=== PATIENT | male | born 1965 | race Caucasian/White ===

== ENCOUNTER → 2017-01-18 | Outpatient (CLI) | payer BC ==
--- NOTE | 2017-01-18 16:23 | KCIC ---
CERVICAL SPINE 2-3V, HAND BILAT 2V Indication: Arthralgia. . History of right fifth finger injury. History of neck injury. Comparison: No comparison is available. FINDINGS: Two-view left hand No evidence of acute fracture. Joint spaces intact. No bone destruction. Soft tissues appear unremarkable. Small chronic appearing ossicle identified at the anterior wrist. IMPRESSION: No acute fracture or dislocation. Two-view left hand There is mild deformity of the distal aspect of the proximal phalanx of the fifth finger, compatible with old fracture deformity as stated in the history. No acute fracture. Joint spaces maintained. No bone destruction. Soft tissues appear unremarkable. IMPRESSION: No acute fracture or dislocation. Old fracture deformity of the fifth proximal phalanx. 3 view cervical spine There is mild superior endplate compression deformity of the C7 vertebral body. Degenerative changes at the C6-C7 disc space with marginal osteophytes. Vertebral body heights are otherwise maintained. No evidence of aggressive bone destruction or additional fracture. Prevertebral soft tissues appear within normal limits. Minimal retrolisthesis of C6 relative to C5 and C7 is likely degenerative. Small area of ossification identified in the posterior neck soft tissues. IMPRESSION: 1. Mild superior endplate compression fracture of C7, age indeterminate but likely old. MR cervical spine could further characterize, as indicated. 2. Mild degenerative changes, particularly at C6-C7. Electronically signed by: Carter Wolf MD (01/18/2017 4:19 PM) [id number]
== END | disposition home or self-care (01) ==
LOC: KCIC 15:32
PROVIDERS: ATTEND Internal Medicine Rheumatology
DX: M25.542 Pain in joints of left hand (principal); M25.541 Pain in joints of right hand; S19.9XXD Unspecified injury of neck, subsequent encounter; S69.91XD Unspecified injury of right wrist, hand and finger(s), subsequent encounter; X58.XXXD Exposure to other specified factors, subsequent encounter
CPT/HCPCS: 72040; 73120